=== PATIENT | female | born 1955 | race Caucasian/White ===

== ENCOUNTER → 2017-04-16 | Outpatient (CLI) | payer OTHER ==
[~2017-04-16] MED LIST: BIOT1CAP8 PO; BUPR-79 PO; CLR10 PO; LEVO175T3 PO
--- NOTE | 2017-04-19 13:48 | MAMMOGRAPHY REPORT ---
BILATERAL DIGITAL SCREENING MAMMOGRAM TOMOSYNTHESIS WITH CAD: 04/16/2017 CLINICAL HISTORY: Routine screening. TECHNIQUE: Breast tomosynthesis in addition to standard 2D mammography was performed. Current study was also evaluated with a Computer Aided Detection (CAD) system. COMPARISON: Comparison is made to exams dated: 04/10/2016 mammogram, 04/08/2015 mammogram, 04/05/2014 m ammogram, 04/03/2013 mammogram, 03/25/2012 mammogram - [facility], and 07/16/2008. BREAST COMPOSITION: There are scattered areas of fibroglandular density in both breasts. FINDINGS: No suspicious masses, calcifications, or areas of architectural distortion are noted in ei ther breast. There has been no significant interval change compared to prior exams. Scattered bilater al benign-appearing calcifications are not significantly changed. Bilateral asymmetries are stable. IMPRESSION: ACR BI-RADS CATEGORY 2: BENIGN There is no mammographic evidence of malignancy. A 1 year screening mammogram is recommended. The pa tient will receive written notification of the results. Approximately 10% of breast cancers are not detected with mammography. A negative mammographic report should not delay biopsy if a clinically suggestive mass is present. Maci Crain M.D. /:04/17/2017 14:28:17 Field Evidence Technician: Jesus JOSEPH)(M), [facility] letter sent: Normal 1/2 BI-RADS Code: ACR BI-RADS Category 2: Benign
== END | disposition home or self-care (01) ==
LOC: C.MAMM 08:56
PROVIDERS: ATTEND Family Medicine
DX: Z12.31 Encounter for screening mammogram for malignant neoplasm of breast (principal)

== ENCOUNTER → 2017-04-30 | Day surgery (SDC) | payer OTHER ==
[2017-04-21 15:24] VITALS: BMI 43.0
[~2017-04-30] VITALS: Ht 162.6 cm; Wt 113.6 kg
[~2017-04-30] MED LIST changes: +ACETAMINOPHEN 500 MG TAB PO ONE; +ACETAMINOPHEN 500 MG TAB PO STA; +LIDOCAINE HCL 2% 2 ML VIAL (20MG/ML) ONE; +MIDAZOLAM HCL 1 MG/ML 2ML VIAL ONE; +ONDANSETRON INJ 2 MG/ML 2 ML VIAL ONE; +PROPOFOL IV EMULSION 10 MG/ML 20 ML VIAL IV ONE
[2017-04-30 13:43] VITALS: Ht 162.6 cm; Wt 113.6 kg
--- NOTE | 2017-04-30 14:18 | Endo History and Physical ---
History & Physical Date of Service: Apr 30, 2017. Chief Complaint: ABDOMINA PAIN, RUQ PAIN Referring Physician: DR. ALESSIA DAMON History of Present Illness For colonoscopy Past Surgical History Hx Cardiac Surgery: No Hx Internal Defibrillator: No Hx Pacemaker: No Hx Abdominal Surgery: Yes () Hx of Implantable Prosthesis: No Hx Post-Op Nausea and Vomiting: No Hx Cancer Surgery: No Hx Thoracic Surgery: No Hx Orthopedic: No Hx Urinary Tract Surgery: No Family History IBD Social History Smoking Status: Former Smoker Hx Substance Use: No Hx Alcohol Use: Yes (RARELY) Allergies Coded Allergies: Sulfa Antibiotics (Verified Allergy, Unknown, UNSURE, 04/21/17) Current Medications Reported Home Medications Medications Dose Route/Sig Max Daily Dose Days Date Category Claritin (Loratadine) 10 Mg Tab 10 Mg PO DAILY 04/21/17 Reported Biotin 1 Mg Cap 1 Cap PO DAILY 04/21/17 Reported Levothyroxine Sodium 175 Mcg Tab 1 Tab PO DAILY 90 04/21/17 Reported Wellbutrin Sr (Bupropion HCl) 150 Mg Ertab 150 Mg PO DAILY 04/21/17 Reported Vital Signs Weight (Kilograms): 113.64 Height (Feet): 5 Height (Inches): 4 Date Time Temp Pulse Resp B/P (MAP) Pulse Ox O2 Delivery O2 Flow Rate FiO2 04/30/17 13:51 37.0 89 18 157/91 (113) 98 Room Air Physical Exam General Appearance: + obese Respiratory/Chest: Respiratory effort: no dyspnea Cardiovascular: Heart Auscultation: RRR Abdomen: Inspection & Palpation: soft Assessment and Plan RUQ pain for colonoscopy
--- NOTE | 2017-04-30 14:54 | Discharge Instructions ---
Endoscopy Patient Instructions Date / Procedure(s) Performed Apr 30, 2017. Colonoscopy Allergy Information Coded Allergies: Sulfa Antibiotics (Verified Allergy, Unknown, UNSURE, 04/21/17) Discharge Date / Findings Apr 30, 2017. diverticulosis, hemorrhoids, polyps Medication Instructions Restart Stopped Medication(s): resume meds Reported Home Medications Medications Dose Route/Sig Max Daily Dose Days Date Category Claritin (Loratadine) 10 Mg Tab 10 Mg PO DAILY 04/21/17 Reported Biotin 1 Mg Cap 1 Cap PO DAILY 04/21/17 Reported Levothyroxine Sodium 175 Mcg Tab 1 Tab PO DAILY 90 04/21/17 Reported Wellbutrin Sr (Bupropion HCl) 150 Mg Ertab 150 Mg PO DAILY 04/21/17 Reported Provider Instructions Activity Restrictions - No exercising or heavy lifting for 24 hours. - Do not drink alcohol the day of the procedure. - Do not drive a car or operate machinery until the day after the procedure. - Do not make any important decisions or sign important papers in 24 hours after the procedure. Following Day: - Return to full activity which may include returning to work/school. Diet Start your diet with liquids and light foods (jello, soup, juice, toast). Then eat your usual diet if not nauseated. Treatment For Common After Affects For mild abdominal pain, bloating, or excessive gas: - Rest - Eat lightly - Lie on right side Follow-Up Information Follow-up with DR. ALESSIA DAMON as scheduled Anesthesia Information What You Should Know You have had a procedure that required some medicine to reduce anxiety and discomfort. This treatment is called moderate sedation. After receiving the treatment, you may be sleepy, but you will be able to breathe on your own. The effects of the treatment may last for several hours. Follow these instructions along with Activity/Diet recommendations noted above: * Do NOT do anything where dizziness or clumsiness would be dangerous. * Rest quietly at home today, then you can be up and about tomorrow. * Have a responsible person stay with you the rest of today. * You may have had an I.V. today. If so, you may take the dressing off later today. Recommendations Call your doctor if: * Trouble breathing * Continuous vomiting for more than 24 hours * Temperature above 101 degrees * Severe abdominal pain or bloating * Pain not relieved by pain medicine ordered * There is increased drainage or redness from any incision * A large amount of rectal bleeding greater than 2-3 tablespoons. (If you had a polyp/s removed or have hemorrhoids, a small amount of blood - from the rectum is to be expected.) * You have any unanswered questions or concerns. IN THE EVENT OF A SERIOUS EMERGENCY, GO TO THE NEAREST EMERGENCY ROOM Your discharge instructions were prepared by provider Michael Franz. Patient Instructions Signature Page Claudia Jean Patient (or Guardian) Signature/Date: I have read and understand the instructions given to me by my caregivers. Caregiver/RN/Doctor Signature/Date: The above-named patient and/or guardian has received patient instructions on this date. + Original Patient Signature Page (only) stays with chart. Please make copy for patient.
--- NOTE | 2017-04-30 14:59 | GI REPORT ---
Procedure Date: 04/30/2017 2:05 PM Procedure: Colonoscopy Indications: Abdominal pain in the right upper quadrant Medicines: Midazolam 2 mg IV, Zofran 4 mg IV, Propofol total dose 350 mg IV, Lidocaine 60 mg IV Complications: No immediate complications. Estimated Blood Loss: Estimated blood loss was minimal. Procedure: Pre-Anesthesia Assessment: - Prior to the procedure, a History and Physical was performed, and patient medications, allergies and sensitivities were reviewed. The patient's tolerance of previous anesthesia was reviewed. - The risks and benefits of the procedure and the sedation options and risks were discussed with the patient. All questions were answered and informed consent was obtained. After I obtained informed consent, the scope was passed under direct vision. Throughout the procedure, the patient's blood pressure, pulse, and oxygen saturations were monitored continuously. The scope was introduced through the anus and advanced to the cecum, identified by appendiceal orifice and ileocecal valve. The colonoscopy was performed without difficulty. The patient tolerated the procedure well. The quality of the bowel preparation was good. Findings: Non-bleeding internal hemorrhoids were found during endoscopy. The hemorrhoids were mild. Multiple diverticula were found in the sigmoid colon. A polyp was found at the hepatic flexure. The polyp was sessile. The polyp was removed with a cold biopsy forceps. Resection and retrieval were complete. Estimated blood loss was minimal. A 14 mm polyp was found in the cecum. The polyp was sessile. The polyp was removed with a hot snare. Resection and retrieval were complete. To prevent bleeding post-intervention, one hemostatic clip was successfully placed (MR conditional). There was no bleeding during, and at the end, of the procedure. A 8 mm polyp was found in the descending colon. The polyp was semi-sessile. The polyp was removed with a hot snare. Resection and retrieval were complete. Estimated blood loss: none. Impression: - Non-bleeding internal hemorrhoids. - Diverticulosis in the sigmoid colon. - One polyp at the hepatic flexure, removed with a cold biopsy forceps. Resected and retrieved. - One 14 mm polyp in the cecum, removed with a hot snare. Resected and retrieved. Clip (MR conditional) was placed. - One 8 mm polyp in the descending colon, removed with a hot snare. Resected and retrieved. Recommendation: - Discharge patient to home (ambulatory). - Continue present medications. - Await pathology results. - Return to primary care physician PRN. Michael Franz M.D. Michael Franz MD 04/30/2017 2:59:05 PM This report has been signed electronically. Note Initiated On: 04/30/2017 2:05 PM I attest to the content of the Intraoperative Record and orders documented therein, exceptions below
--- NOTE | 2017-04-30 15:08 | Anesthesiology Progress Note ---
Anesthesia Post Op Note Date & Time Apr 30, 2017 at 15:08 Vital Signs Pain Intensity: 0 Vital Signs Past 12 Hours Date Time Temp Pulse Resp B/P (MAP) Pulse Ox O2 Delivery O2 Flow Rate FiO2 04/30/17 13:51 37.0 89 18 157/91 (113) 98 Room Air Notes Mental Status: alert / awake / arousable, participated in evaluation Pt Amnestic to Procedure: Yes Nausea / Vomiting: adequately controlled Pain: adequately controlled Airway Patency, RR, SpO2: stable & adequate BP & HR: stable & adequate Hydration State: stable & adequate Anesthetic Complications: no major complications apparent
[2017-04-30 15:29] VITALS: BP 130/91; PULSE 74; O2SAT 98
== END | disposition home or self-care (01) ==
LOC: C.GI 13:23
PROVIDERS: ATTEND Internal Medicine Gastroenterology
DX: R10.11 Right upper quadrant pain (principal); D12.3 Benign neoplasm of transverse colon; D12.0 Benign neoplasm of cecum; D12.4 Benign neoplasm of descending colon; K64.8 Other hemorrhoids; K57.30 Diverticulosis of large intestine without perforation or abscess without bleeding

== ENCOUNTER 2023-07-25 11:32 | Observation (INO) ==
[2023-07-25] MEDS ORDERED: SODIUM CHLORIDE 0.9% 1,000 ML IV STA (11:38)
[2023-07-25] MEDS ORDERED: ASPIRIN CHEW 324 MG PO STA (11:38)
--- NOTE | 2023-07-25 11:38 | ED Triage Note ---
Date of Service July 25, 2023 History of Present Illness This patient was briefly evaluated while in triage. An abbreviated physical exam was performed. This patient is a 67-year-old Female who presents to the ED for evaluation of chest pain. Pt. woke up from a nap with severe chest tightness and bob shoulder pain about 1.5 hours ago. Pt. denies SOB or nausea. Denies history of blood clots or cardiac history. Took 2 Advil without relief. Non-exertional in nature. Physical Exam VITALS: Vitals are noted on the nurse's note and reviewed by myself. GENERAL: This is a 67 year old female, in no acute distress, nondiaphoretic, well-developed well-nourished. SKIN: No obvious rashes, edema, erythema HEAD: Normocephalic atraumatic. EYES: Conjunctivae without injection, sclerae without icterus. NECK: No JVD. LUNGS: No retractions or accessory muscle use. MUSCULOSKELETAL: Presents in a wheelchair NEURO: Patient was alert and oriented to person place and time. No focal neurological deficits. Initial orders for labs and / or imaging were placed and patient was placed in the waiting area until a bed is available. Please see further documentation for the full ED course.
[2023-07-25 12:19] LABS: Basophils # (auto) 0.05 K/uL (0.00-0.20); Basophils % (auto) 0.7 %; Eosinophils # (auto) 0.35 K/uL (0.00-0.50); Eosinophils % (auto) 4.7 %; Hematocrit (blood only) 46.5 % (37.0-47.0); Hemoglobin 15.1 g/dl (12.0-16.0); Immature Granulocytes # (auto) 0.03 K/uL (0.01-0.20); Immature Granulocytes % (auto) 0.4 %; Lymphocytes # (auto) 1.85 K/uL (1.20-3.40); Mean Corpuscular Hemoglobin 28.8 pg (25.0-34.0); Mean Corpuscular Hgb Conc 32.5 g/dL (32.0-36.0); Mean Corpuscular Volume 88.6 fL (80.0-100.0); Mean Platelet Volume 9.2 fL (9.4-12.4); Monocytes % (auto) 5.4 %; Neutrophils # (auto) 4.72 K/uL (1.40-6.50); Neutrophils % (auto) 63.8 %; Platelet Count 223 K/uL (130-400); RDW Coefficient of Variation 13.1 % (11.5-14.5); RDW Standard Deviation 42.5 fL (36.4-46.3); Red Blood Count 5.25 M/uL (4.20-5.40)
[2023-07-25] MEDS ORDERED: NITROGLYCERIN SL 0.4 MG/TAB TAB SL STA ×2 (12:30→13:34)
[2023-07-25 12:36] LABS: Albumin Globulin Ratio 1.7 (0.9-2); Albumin Level 4.5 gm/dl (3.4-5.0); BUN Creatinine Ratio 14.5 (10-20); Bilirubin,Total 0.6 mg/dl (0.2-1.0); Calcium 9.6 mg/dl (8.6-10.3); Creatinine Clr Calc Pharmacy 90.8 ml/min; Est GFR (African American) 95.4 ml/min; Est GFR (Non-African American) 82.3 ml/min; Globulin 2.7 gm/dl (2.5-4.0); Potassium 4.5 mmol/L (3.5-5.1); Total Protein 7.2 gm/dl (6.0-8.3)
[2023-07-25 12:42] LABS: Troponin I High Sensitivity 2.8 pg/ml (0-14)
--- NOTE | 2023-07-25 12:46 | XRay Report ---
XR chest 1V portable CLINICAL HISTORY: Chest pain, nonspecific. COMPARISON STUDY: Chest radiograph February 10, 2022. FINDINGS: Lung volumes are normal. Lungs are clear. There is no pneumothorax or pleural effusion. Car diac size is normal. Mediastinal contours are normal. There is no evidence for pulmonary edema. IMPRESSION: No acute cardiopulmonary findings. ACT 112: Negative or not required by law. Electronically signed by: Ben Moore M.D. 07/25/2023 12:44 PM
[2023-07-25 12:48] LABS: Partial Thromboplastin Ratio 1.1; Partial Thromboplastin Time 30.8 Seconds (21.0-31.0); Prothrombin Time 10.9 Seconds (9.0-12.0)
[2023-07-25] MEDS ORDERED: NITROGLYCERIN 2% OINTMENT 30GM TUBE EXT STA (13:34)
[2023-07-25 14:22] LABS: D Dimer 250 ug/L FEU (0-500)
[2023-07-25 14:57] LABS: Magnesium 1.8 mg/dl (1.7-2.4)
--- NOTE | 2023-07-25 14:57 | History & Physical Report ---
Date of Service July 25, 2023 Assessment & Plan (1) Chest pain, rule out acute myocardial infarction: Plan: D-dimer negative Serial troponins, TTE - if normal recommend stress echo tomorrow, if positive will consult cardiology NPO after midnight If all testing negative suspect pain is MSK in nature given reproducibility but given classic story and no exacerbating event to cause MSK pain will rule out cardiac cause first. (2) Hypothyroidism: Plan: TSH WNL in April Continue her usual levothyroxine dosing (3) Morbid obesity: Plan VTE Prophylaxis - low risk Diet - heart healthy, NPO after midnight Disposition - observation to med/tele Admission and Anticipated Discharge Date Admission Date: July 25, 2023 History of Present Illness Chief Complaint: Chest pain Primary Care Provider: Speedy Benavides MD Claudia Jean is a 67 year old female who presents to the ER with chest pain. Pain is central crushing (like an elephant sitting on her chest) after waking up from a nap around 10:30am. Radiating to both shoulder. No associated nausea, shortness of breath or diaphoresis. Pain severity 5/10 which only got better when she came to the ER and was given nitroglycerin. Current pain 2/10. No prior history of exertional chest pain or shortness of breath, prior UT or stroke. She denies any history of HTN or diabetes (on Victoza for weight loss). No history of heartburn or gastritis and was not precipitated by food. Never had similar pains previosuly. Allergies Allergy/AdvReac Type Severity Reaction Status Date / Time Sulfa (Sulfonamide Allergy Unknown UNSURE Verified 07/19/23 08:49 Antibiotics) Home Medications Medication Instructions Recorded Confirmed Type levothyroxine 100 mcg tablet 100 mcg PO QAM #90 tabs 06/14/23 07/25/23 Rx liraglutide 0.6 mg/0.1 mL (18 mg/3 1.2 mg subcut QAM 07/25/23 07/25/23 History mL) subcutaneous pen injector (Victoza 2-Harvey) Past Med/Surg History Medical History History of COVID-19 diagnosed August 2020. symptoms: fever, chills, aches, no smell, severe flu- like symptoms. no hospitalization. currently still has fatigue and no smell.. Hx of colonic polyps Morbid obesity Prediabetes Nonalcoholic fatty liver disease Hypothyroidism Surgical History History of colonoscopy S/P tooth extraction S/P tonsillectomy S/P dilation and curettage S/P laparoscopic procedure History of section Family History Father Lung cancer Stroke Mother Melanoma Sister Diabetes Ovarian cancer Denies family history of Colon cancer Prostate cancer Myocardial infarction Breast cancer Social History Smoking Status: Never smoker Second Hand Exposure: No; Do You Dip or Chew Tobacco: No; Hx Alcohol Use: No Hx Substance Use: No Preferred Language: [place] Communication Ability: Effective Visual Impairment: No Limitations Hearing Ability: Normal Station Repairer Required: No Beliefs That Will Affect Care: None marital status: Current Living Situation: Spouse current occupational status: employed 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 Feels Safe at Home: Yes Dental Care, Regularly: No Physical Activity Frequency: Does not Exercise Seatbelt Use: always Assistive Devices: Glasses Review of Systems Review of Systems: All systems reviewed & are unremarkable except as noted in HPI & below Physical Exam Constitutional: WD/WN, vitals as above ENMT: external ear and nose normal, oropharynx normal Respiratory: normal respiratory effort, lungs clear to auscultation Cardiovascular: RRR, no murmur, no edema Chest (Breasts): Additional Comments: Reproducible pain over anterior chest on palpation Gastrointestinal (Abdomen): normal bowel sounds, soft, nontender, no hepatosplenomegaly Musculoskeletal: no cyanosis or clubbing, extremities motor strength 5/5 Skin: no rashes, warm and dry Neurologic: moves all extremities and awake; not confused Psychiatric: A+Ox3, euthymic affect Results & Data Results & Data Vital Signs (Past 12 Hours) Vital Signs Temp Pulse Pulse Resp BP BP Pulse Ox 07/25/23 13:04 80 20 142/80 H 97 07/25/23 12:24 77 16 180/103 H 96 07/25/23 11:37 36.2 C L 90 20 155/85 H 99 O2 Del Method 07/25/23 13:04 Room Air 07/25/23 12:24 Room Air 07/25/23 11:37 Room Air Laboratory Results Abnormal lab results 07/25/23 Range/Units 11:51 MPV 9.2 L (9.4-12.4) fL Diagnostic Findings XR chest 1V portable CLINICAL HISTORY: Chest pain, nonspecific. COMPARISON STUDY: Chest radiograph February 10, 2022. FINDINGS: Lung volumes are normal. Lungs are clear. There is no pneumothorax or pleural effusion. Cardiac size is normal. Mediastinal contours are normal. There is no evidence for pulmonary edema. IMPRESSION: No acute cardiopulmonary findings. Medications Administered ER Medications Given: ASA 324mg PO ECG Rate (beats per minute): 87 Rhythm: normal sinus Findings: + other (low voltage QRS, T wave flattening throughout) Comparison ECG Date: from (January 20, 2019) Change: no significant change Code Status & VTE Plan Code Status Full VTE Prophylaxis Plan VTE Prophylaxis will be ordered: No PG Care Time/CCT Total # of Minutes Spent Total Time Spent with Patient: Total time spent is greater than 50% in coordination of care (as documented) at patient's floor/unit and/or counseling patient: Coding Level of Care Code 39658 INT INP/OBS CARE 2/55MIN Diagnoses Chest pain, rule out acute myocardial infarction R07.9 Hypothyroidism E03.9 Morbid obesity E66.01
[2023-07-25 15:05] LABS: Troponin I High Sensitivity 3.8 pg/ml (0-14)
[2023-07-25] MEDS ORDERED: ACETAMINOPHEN 325 MG TAB ONE (16:21)
--- NOTE | 2023-07-25 16:23 | Emergency Department Note ---
History of Present Illness General Chief Complaint: Chest Pain Stated Complaint: CHEST PAIN, SHOULDER PAIN Time Seen by Provider: 07/25/23 12:18 History of Present Illness Provider Complaint: chest pain Time: 10:30 Duration: intermittent Onset: during rest Pain Location: substernal Pain Radiation: RUE and LUE Severity: severe Maximum Pain Intensity: 9 Current Pain Intensity: 9 Quality: + heaviness (Pressure) Relieved By: + nothing Exacerbated By: + nothing Context: no recent illness, no recent surgery, no recent immobilization, no recent travel, no trauma/injury or no new medications Associated symptoms: no nausea, no vomiting, no diaphoresis, no dyspnea, no syncope, no palpitations, no fever, no cough or no leg swelling Treatments prior to arrival: aspirin Home Medications Medication Instructions Recorded Confirmed Type levothyroxine 100 mcg tablet 100 mcg PO QAM #90 tabs 06/14/23 07/25/23 Rx liraglutide 0.6 mg/0.1 mL (18 mg/3 1.2 mg subcut QAM 07/25/23 07/25/23 History mL) subcutaneous pen injector ([employer] 2-Harvey) Allergies Allergy/AdvReac Type Severity Reaction Status Date / Time Sulfa (Sulfonamide Allergy Unknown UNSURE Verified 07/19/23 08:49 Antibiotics) Past Med/Surg History Medical History History of COVID-19 diagnosed August 2020. symptoms: fever, chills, aches, no smell, severe flu- like symptoms. no hospitalization. currently still has fatigue and no smell.. Hx of colonic polyps Morbid obesity Prediabetes Nonalcoholic fatty liver disease Hypothyroidism Surgical History History of colonoscopy S/P tooth extraction S/P tonsillectomy S/P dilation and curettage S/P laparoscopic procedure History of section Family History Father Lung cancer Stroke Mother Melanoma Sister Diabetes Ovarian cancer Denies family history of Colon cancer Prostate cancer Myocardial infarction Breast cancer Social History Smoking Status: Former smoker Second Hand Exposure: No; Do You Dip or Chew Tobacco: No; Hx Alcohol Use: Yes Hx Substance Use: No Preferred Language: Kiswahili Communication Ability: Effective Visual Impairment: No Limitations Hearing Ability: Normal Deli Bak[employer] Clerk Required: No Beliefs That Will Affect Care: None marital status: Current Living Situation: Spouse current occupational status: employed 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 Feels Safe at Home: Yes Dental Care, Regularly: No Physical Activity Frequency: Does not Exercise Seatbelt Use: always Assistive Devices: Glasses Physical Exam Vital Signs Vital Signs - 24 hr 07/25/23 11:37 07/25/23 12:24 07/25/23 13:04 Temperature 36.2 C L Temperature Source Temporal Artery Scan Pulse Rate 90 Pulse Rate [Left Finger] 77 80 Pulse Rhythm Regular Pulse Strength Normal Respiratory Rate 20 16 20 Respiratory Effort / Characteristics Non-Labored Spontaneous Respiratory Depth Normal Respiratory Pattern Regular Blood Pressure 155/85 H Blood Pressure [Left Arm] 180/103 H 142/80 H Blood Pressure Mean 108 Blood Pressure Mean [Left Arm] 128 100 Blood Pressure Position Sitting Blood Pressure Position [Left Arm] Sitting Sitting Pulse Oximetry 99 96 97 Oxygen Delivery Method Room Air Room Air Room Air Sepsis Recent Fever Within 48 Hours No Sepsis New/Unexplained Change in Mental Status No Sepsis Action Taken by Nursing No Action Required 07/25/23 15:00 Temperature Temperature Source Pulse Rate Pulse Rate [Left Finger] 79 Pulse Rhythm Pulse Strength Respiratory Rate 20 Respiratory Effort / Characteristics Respiratory Depth Respiratory Pattern Blood Pressure Blood Pressure [Left Arm] 142/80 H Blood Pressure Mean Blood Pressure Mean [Left Arm] 100 Blood Pressure Position Blood Pressure Position [Left Arm] Pulse Oximetry 98 Oxygen Delivery Method Sepsis Recent Fever Within 48 Hours Sepsis New/Unexplained Change in Mental Status Sepsis Action Taken by Nursing Physical Exam GENERAL: oriented to person, place, and time. appears well-developed and well- nourished. HENT: Exam performed. - Head: Normocephalic and atraumatic. EYES: Conjunctivae and EOM are normal. Right eye exhibits no discharge. Left eye exhibits no discharge. No scleral icterus. NECK: Normal range of motion. Neck supple. No JVD present. CV: Normal rate, regular rhythm, normal heart sounds and intact distal pulses. There is no peripheral edema. Palpable radial pulses bue. PULM/CHEST: Effort normal and breath sounds normal. No respiratory distress. No stridor. no wheezes. no rales. ABD: The abdomen is soft. There is no tenderness. NEURO: Motor and sensation grossly intact. SKIN: Skin is warm and dry. He is not diaphoretic. PSYCH: normal mood and affect. Behavior is normal. Judgment and thought content normal. Course Course 1218: The patient was evaluated in room C8. A complete history and physical exam was performed Cardiac monitoring: An order was placed for continuous cardiac monitoring. The monitor shows a rate of 90 with sinus rhythm interpreted by me 1311: Nursing reports that the patient's chest pain has resolved with sublingual nitroglycerin. 1345: Vital signs stable. Labs and imaging are within normal limits. Patient was offered inpatient observation as she states she wishes to stay inpatient to be eval by cardiology as she is frightened of chest pain will recur. She states she feels like her chest pain started come back. Nitroglycerin sublingual and Nitropaste ordered for the patient. Patient will be admitted to the medicine and the hospitalist team Dr. Amado notified. Administered Medications Discontinued Medications Acetaminophen (Acetaminophen 325 Mg Tab) Confirm Administered Dose 650 mg .ROUTE .[facility] Stop: 07/25/23 16:22 Last Admin: 07/25/23 16:25 Dose: 650 mg Documented By: SERA Aspirin (Aspirin Chew 324 Mg) 324 mg PO NOW STA Stop: 07/25/23 11:39 Last Admin: 07/25/23 11:57 Dose: 324 mg Documented By: MAGALY Sodium Chloride (Nss) 1,000 mls @ 999 mls/hr IV .Q1H1M STA Stop: 07/25/23 12:38 Last Admin: 07/25/23 11:57 Dose: 999 mls/hr Documented By: MAGALY Nitroglycerin (Nitroglycerin Sl 0.4 Mg/Tab Tab) 0.4 mg SL NOW STA Stop: 07/25/23 12:31 Last Admin: 07/25/23 13:01 Dose: 0.4 mg Documented By: SERA Nitroglycerin (Nitroglycerin Sl 0.4 Mg/Tab Tab) 0.4 mg SL NOW STA Stop: 07/25/23 13:35 Last Admin: 07/25/23 13:43 Dose: 0.4 mg Documented By: SERA Nitroglycerin (Nitroglycerin 2% Ointment 30gm Tube) 0.5 inch EXT NOW STA Stop: 07/25/23 13:35 Last Admin: 07/25/23 13:42 Dose: 0.5 inch Documented By: SERA Medical Decision Making Laboratory Data Attestation: I reviewed the patient's lab results. 07/25/23 11:51 07/25/23 11:51 Labs: Lab Results 07/25/23 07/25/23 Range/Units 11:51 14:23 WBC 7.40 (4.8-10.8) K/ul RBC 5.25 (4.20-5.40) M/uL Hgb 15.1 (12.0-16.0) g/dl Hct 46.5 (37.0-47.0) % MCV 88.6 (80.0-100.0) fL MCH 28.8 (25.0-34.0) pg MCHC 32.5 (32.0-36.0) g/dL RDW Std Deviation 42.5 (36.4-46.3) fL RDW Coeff of [place] 13.1 (11.5-14.5) % Plt Count 223 (130-400) K/uL MPV 9.2 L (9.4-12.4) fL Immature Gran % (Auto) 0.4 % Neut % (Auto) 63.8 % Lymph % (Auto) 25.0 % Bates % (Auto) 5.4 % Eos % (Auto) 4.7 % Baso % (Auto) 0.7 % Neut # (Auto) 4.72 (1.40-6.50) K/uL Lymph # (Auto) 1.85 (1.20-3.40) K/uL Bates # (Auto) 0.40 (0.11-0.59) K/uL Eos # (Auto) 0.35 (0.00-0.50) K/uL Baso # (Auto) 0.05 (0.00-0.20) K/uL Immature Gran # (Auto) 0.03 (0.01-0.20) K/uL PT 10.9 (9.0-12.0) Seconds INR 1.0 (0.9-1.1) APTT 30.8 (21.0-31.0) Seconds PTT Ratio 1.1 D-Dimer 250 (0-500) ug/L FEU Sodium 140 (136-145) mmol/L Potassium 4.5 (3.5-5.1) mmol/L Chloride 106 (98-107) mmol/L Carbon Dioxide 28 (21-32) mmol/L Anion Gap 6 (3-11) BUN 11 (6-23) mg/dl Creatinine 0.76 (0.6-1.2) mg/dl Est Cr Clr Drug Dosing 90.8 ml/min Est GFR ( Amer) 95.4 ml/min Est GFR (Non-Af Amer) 82.3 ml/min BUN/Creatinine Ratio 14.5 (10-20) Glucose 95 (70-99(Fasting)) mg/dl Calcium 9.6 (8.6-10.3) mg/dl Magnesium 1.8 (1.7-2.4) mg/dl Total Bilirubin 0.6 (0.2-1.0) mg/dl AST 20 (13-39) U/L ALT 22 (7-52) U/L Alkaline Phosphatase 77 (34-104) U/L Troponin I High Sens 2.8 3.8 (0-14) pg/ml Total Protein 7.2 (6.0-8.3) gm/dl Albumin 4.5 (3.4-5.0) gm/dl Globulin 2.7 (2.5-4.0) gm/dl Albumin/Globulin Ratio 1.7 (0.9-2) Lipase 13 (11-82) U/L ECG Data Attestation: I personally reviewed and interpreted this ECG as follows: Indication: chest pain Rate (beats per minute): 87 Rhythm: normal sinus Findings: no ST depression, no ST elevation or no prolonged QT Additional Comments: QRS 66 MDM Narrative 1218: The patient was evaluated in room C8. A complete history and physical exam was performed Cardiac monitoring: An order was placed for continuous cardiac monitoring. The monitor shows a rate of 90 with sinus rhythm interpreted by me 1311: Nursing reports that the patient's chest pain has resolved with sublingual nitroglycerin. 1345: Vital signs stable. Labs and imaging are within normal limits. Patient was offered inpatient observation as she states she wishes to stay inpatient to be eval by cardiology as she is frightened of chest pain will recur. She states she feels like her chest pain started come back. Nitroglycerin sublingual and Nitropaste ordered for the patient. Patient will be admitted to the medicine and the hospitalist team Dr. Amado notified. Impression & Plan Chest pain Discharge Plan Visit Data Chief Complaint: Chest Pain Stated Complaint: CHEST PAIN, SHOULDER PAIN ED Provider: Claude Elizondo Discharge Problem: Chest pain Patient Disposition: Being Evaluated by Hospitalist Forms Stand Alone Forms: [facility] Prescriptions Prescriptions: No Action levothyroxine 100 mcg tablet 100 mcg PO QAM Qty: 90 3RF Victoza 2-Harvey 0.6 mg/0.1 mL (18 mg/3 mL) pen injector 1.2 mg SUBCUT QAM Referrals Referrals: ,Speedy Foley MD [Primary Care Provider] - Discharge Problem: Chest pain Qualifiers: Chest pain type: unspecified Qualified Code(s): R07.9 - Chest pain, unspecified
[2023-07-25] MEDS ORDERED: FAMOTIDINE 20 MG in SYRINGE 3 ML IV ONE (16:45)
[2023-07-25] MEDS ORDERED: ACETAMINOPHEN 325 MG TAB PO PRN (17:29)
[2023-07-26] MEDS ORDERED: LEVOTHYROXINE SODIUM 100 MCG TABLET PO SCH (06:30)
[2023-07-26 07:44] LABS: Basophils # (auto) 0.05 K/uL (0.00-0.20); Basophils % (auto) 0.6 %; Eosinophils % (auto) 3.4 %; Hematocrit (blood only) 42.2 % (37.0-47.0); Hemoglobin 13.9 g/dl (12.0-16.0); Immature Granulocytes # (auto) 0.04 K/uL (0.01-0.20); Immature Granulocytes % (auto) 0.5 %; Lymphocytes # (auto) 2.03 K/uL (1.20-3.40); Lymphocytes % (auto) 22.9 %; Mean Corpuscular Hemoglobin 29.2 pg (25.0-34.0); Mean Corpuscular Hgb Conc 32.9 g/dL (32.0-36.0); Mean Corpuscular Volume 88.7 fL (80.0-100.0); Mean Platelet Volume 9.1 fL (9.4-12.4); Monocytes # (auto) 0.52 K/uL (0.11-0.59); Monocytes % (auto) 5.9 %; Neutrophils # (auto) 5.94 K/uL (1.40-6.50); Neutrophils % (auto) 66.7 %; Platelet Count 207 K/uL (130-400); RDW Coefficient of Variation 13.1 % (11.5-14.5); RDW Standard Deviation 42.9 fL (36.4-46.3); Red Blood Count 4.76 M/uL (4.20-5.40); White Blood Count 8.88 K/ul (4.8-10.8)
[2023-07-26 07:59] LABS: BUN Creatinine Ratio 14.6 (10-20); Calcium 9.3 mg/dl (8.6-10.3); Chol HDL Ratio 3.6 (0-5); Creatinine Clr Calc Pharmacy 84.2 ml/min; Est GFR (Non-African American) 75.1 ml/min; Potassium 4.4 mmol/L (3.5-5.1)
[2023-07-26 08:33] LABS: Estimated Average Glucose 111 mg/dl; Hemoglobin A1C 5.5 % (4.5-5.6)
--- NOTE | 2023-07-26 11:08 | XCELERA ---
[id number] \\[email or web address]\[email or web address]_[id number]___[id number]
--- NOTE | 2023-07-26 12:06 | Discharge Summary ---
Date of Service July 26, 2023 Admission HPI Per Admitting Provider Claudia Jean is a 67 year old female who presents to the ER with chest pain. Pain is central crushing (like an elephant sitting on her chest) after waking up from a nap around 10:30am. Radiating to both shoulder. No associated nausea, shortness of breath or diaphoresis. Pain severity 5/10 which only got better when she came to the ER and was given nitroglycerin. Current pain 2/10. No prior history of exertional chest pain or shortness of breath, prior [place] or stroke. She denies any history of HTN or diabetes (on Victoza for weight loss). No history of heartburn or gastritis and was not precipitated by food. Never had similar pains previosuly. Principal Diagnosis Noncardiac chest pain Discharge Exam General-alert and oriented x3, no fevers, no chills HEENT-head atraumatic and normocephalic, pupils equal and reactive to light, extraocular muscles intact Neck-no lymphadenopathy or thyromegaly, trachea midline Chest-clear to auscultation percussion. No rales wheezing or rhonchi Cardiac-regular rate and rhythm, normal S1 and S2 Abdomen-normal bowel sounds, nontender, no hepatosplenomegaly Extremities-no cyanosis, clubbing, or edema Neuro-cranial nerves II through XII intact, motor and sensory function within normal limits, strength symmetrical, no focal deficits Psych-normal affect, normal mood Discharge Data Allergies Allergy/AdvReac Type Severity Reaction Status Date / Time Sulfa (Sulfonamide Allergy Unknown UNSURE Verified 07/19/23 08:49 Antibiotics) Consultations 07/25/23 13:34 ED Decision to Admit Stat Hospital Course (1) Chest pain, rule out acute myocardial infarction: Appears to be noncardiac. EKG is nonacute. Troponins are negative. Cardiac echo reveals no regional wall motion abnormalities. (2) Hypothyroidism: Stable. Continue thyroid replacement therapy (3) Morbid obesity: BMI greater than 40. Significant weight loss recommended Plan Home today, July 26 Total Time Total Time Spent Total Time Spent (In Minutes): 45 minutes Discharge Plan Discharge Items Patient Disposition: Home - Self-Care Reason For Visit: CHEST PAIN RULE OUT [place] Discharge Diagnosis: Noncardiac chest pain Activity: Resume your previous activity Non-emergency contact: Primary Care Provider Call non-emergency contact if: you have any medication questions and your symptoms worsen Follow-up/Referrals: Speedy Benavides MD [Primary Care Provider] - Diet: Regular Addtl Attending Provider Instructions: No new medications at this time Pending Studies at Discharge: No Stand-Alone Forms: My [facility] ePub Direct, Smoking Cessation Medications and DC Order Prescriptions: Continued levothyroxine 100 mcg tablet 100 mcg PO QAM Qty: 90 3RF Victoza 2-Harvey 0.6 mg/0.1 mL (18 mg/3 mL) pen injector 1.2 mg SUBCUT QAM Discharge Orders: Discharge Order (Routine); Ordered 07/26/23 Ordered By: Zain Romero Admission Data Admit Date/Time: 07/25/23 15:10 Attending Provider: Zain Romero Admit Provider: Walter Amado Primary Care Provider: Speedy Benavides Other Providers: Walter Amado Coding Level of Care Code 26207 INP/OBS DISCH >30 MIN Diagnoses Chest pain, rule out acute myocardial infarction R07.9 Hypothyroidism E03.9 Morbid obesity E66.01
--- NOTE | 2023-07-26 12:32 | Electrocardiogram Report ---
Test Reason : Blood Pressure : / mmHG Vent. Rate : 087 BPM Atrial Rate : 087 BPM P-R Int : 150 ms QRS Dur : 066 ms QT Int : 344 ms P-R-T Axes : 086 -24 056 degrees QTc Int : 413 ms Normal sinus rhythm Low voltage QRS Inferior infarct (cited on or before 20-JAN-2019) Possible Anterolateral infarct (cited on or before 20-JAN-2019) Abnormal ECG When compared with ECG of 20-JAN-2019 09:28, Questionable change in initial forces of Anterior leads Confirmed by Speedy Kevin ([id number]) on 07/26/2023 12:32:03 PM Referred By: REFERRED SELF Confirmed By:Speedy Kevin
--- NOTE | 2023-07-26 13:36 | XCELERA ---
[id number] \\[email or web address]\[email or web address]_[id number]
== END 2023-07-26 12:43 | disposition home or self-care (01) ==
LOC: ED 11:32 → EDINP 11:32 → SUATTDRO 15:10 → 2N 17:29